=== PATIENT | male | born 1980 | race Caucasian/White ===

== ENCOUNTER → 2021-08-13 | Outpatient (CLI) | payer OTHER, SELFPAY ==
--- NOTE | 2021-08-13 11:53 | CT_ITS ---
INDICATION: CONTUSION OF RT FRONT WALL OF THORAX, INTITAL ENCOUNTER EXAMINATION: CT CHEST WITHOUT CONTRAST - CT Chest W/O Contrast Injection TECHNIQUE: Helically acquired images were obtained of the chest. A radiation dose optimization technique was used for this scan. IV Contrast dosage and agent: None. COMPARISON: None. FINDINGS: Lungs/pleura: The central airways are patent. There are multiple pulmonary nodules throughout both lungs. For example, largest nodules as follow: * 1.0 cm in the right lower lobe (4: 83) * 1.4 cm in the right lower lobe (4: 91) * 1.0 cm in the right upper lobe (4:42). There are tree-in-bud nodular opacities in the right upper lobe and superior aspect of the right lower lobe. No pleural effusion or pneumothorax. Mediastinum: Heart size is normal. No pericardial effusion. Limited assessment for masses lymphadenopathy and noncontrast enhanced study. Multiple subcentimeter mediastinal nodes that are not enlarged by size criteria. No masses. Vasculature: Normal course and caliber of the pulmonary arteries and thoracic aorta within limits of noncontrast study. Bones/soft tissues: Multilevel degenerative changes of the thoracolumbar spine. Remote posterior lateral rib 8 fracture. No destructive osseous lesions. No acute fracture or subluxation. Soft tissues are unremarkable. Visualized upper abdomen: Unremarkable. CT/Chest without Contrast IMPRESSION: 1. Remote right posterior lateral rib 8 fracture. No acute fracture or subluxation. 2. Stable bilateral pulmonary nodules measuring up to 1.4 cm in the right upper lobe. Metastatic disease cannot be excluded. Further assessment per FLEISCHNER criteria recommended. 3. Tree-in-bud nodular opacities in the right lung may relate to superimposed infectious/inflammatory process. Electronically Signed: Pascual Luo, at 13:14 EDT ,
== END | disposition home or self-care (01) ==
PROVIDERS: Visit Provider Family Medicine
DX: S20.211A Contusion of right front wall of thorax, initial encounter (principal); S20.221A Contusion of right back wall of thorax, initial encounter
CPT/HCPCS: 71250